=== PATIENT | female | born 1945 | race Two or more races ===

== ENCOUNTER 2022-06-07 07:00 | Inpatient (IN) | payer OTHER ==
[~2022-06-07] VITALS: Ht 157.5 cm; Wt 71.7 kg
[2022-06-07] MEDS ORDERED: ZETIA10 MG PO (09:09)
[2022-06-07] MEDS ORDERED: NORVASC2.5 M1 PO (09:09)
[2022-06-07] MEDS ORDERED: MICARDIS HCT 81 EACH PO (09:09)
[2022-06-07] MEDS ORDERED: MULTIPLE VITAM1 EAC2 PO (09:10)
[2022-06-07] MEDS ORDERED: CRESTOR20 MG PO (09:10)
[2022-06-07] MEDS ORDERED: VITAMIN C100 MG PO (09:11)
[2022-06-07] MEDS ORDERED: BREO ELLIPTA 21 EACH IH (09:46)
[2022-06-15] MEDS ORDERED: INTEGRA PLUS C1 EACH PO (06:33)
[2022-06-15] MEDS ORDERED: XARELTO10 MG PO (06:33)
[2022-06-15] MEDS ORDERED: BACTRIM DS TAB1 EACH PO (06:33)
[2022-06-15] MEDS ORDERED: OXYC1TAB9 PO (06:33)
== END 2022-06-15 12:07 | DRG 470 ==
LOC: O/R 06-13 06:00 → SURH 06-13 07:00
PROVIDERS: ADMIT Orthopaedic Surgery Sports Medicine; ATTEND Orthopaedic Surgery Sports Medicine
PROC: 0SRD0J9 Replacement of Left Knee Joint with Synthetic Substitute, Cemented, Open Approach (ICD-10-PCS; principal; 2022-06-13 14:45)
DX: M17.12 Unilateral primary osteoarthritis, left knee (principal); I10 Essential (primary) hypertension; Z20.822 Contact with and (suspected) exposure to COVID-19